=== PATIENT | female | born 1945 | race Caucasian/White ===

== ENCOUNTER 2021-05-08 08:56 | Inpatient (IN) ==
[2021-05-08] MEDS ORDERED: Levalbuterol 1 PUFF INHALER IH STA (09:38)
[2021-05-08 09:53] LABS: VBG HCO3 29 mEq/L (21-27); VBG PCO2 58 mmHg (41-51); VBG PH 7.31 pH Units (7.32-7.42); VBG PO2 51 mmHg (25-50)
[2021-05-08 09:59] LABS: INR 1.2; Prothrombin Time 13.2 Seconds (9.4-12.1)
[2021-05-08 10:02] LABS: Activated Partial Thrombo Time 34.1 Seconds (26.0-36.0)
[2021-05-08 10:23] LABS: Alanine Aminotransferase 34 Units/L (7-52); Albumin 4.3 g/dL (3.5-5.7); Albumin/Globulin Ratio 1.6 (1.1-2.2); Alkaline Phosphatase 64 Units/L (34-104); Aspartate Amino Transferase 30 Units/L (13-39); BUN/Creatinine Ratio 24 (6-26); Bilirubin,Direct 0.1 mg/dL (0.0-0.2); Bilirubin,Indirect 0.8 mg/dL (0.0-1.0); Bilirubin,Total 0.9 mg/dL (0.3-1.0); Blood Urea Nitrogen 16 mg/dL (8-23); Calcium 9.5 mg/dL (8.6-10.3); Carbon Dioxide 26 mEq/L (23-29); Chloride 92 mEq/L (98-107); Globulin 2.7 g/dL (2.4-3.5); Glucose 154 mg/dL (70-105); Osmolality,Calculated 270 (280-300); Potassium 4.5 mEq/L (3.5-5.1); Sodium 128 mEq/L (136-145); Troponin I 0.03 ng/mL (< 0.04); eGFR For African Americans > 60 (> 60); eGFR For Non-African Americans > 60 (> 60)
[2021-05-08] MEDS ORDERED: Furosemide 40 MG/4 ML VIAL IVP ONE (10:58)
[2021-05-08 11:02] LABS: Influenza A PCR Negative (Negative); Influenza B PCR Negative (Negative); Resp. Syncytial Virus PCR Negative (Negative)
[2021-05-08 11:03] LABS: SARS-CoV-2 by PCR (In House) Negative (Negative)
[2021-05-08 11:20] LABS: Basophils % 0.2 %; Eosinophils # 0.1 K/mcL (0.0-0.6); Eosinophils % 0.8 %; Hematocrit 45.1 % (35.3-44.9); Hemoglobin 14.3 g/dL (11.5-15.4); Immature Granulocytes % 0.3 % (0-4); Lymphocytes # 1.7 K/mcL (0.6-4.6); Lymphocytes % 11.4 %; Mean Corpuscular HGB Conc 31.7 g/dL (31.6-35.5); Mean Corpuscular Hemoglobin 28.1 pg (28.0-33.3); Mean Corpuscular Volume 88.8 fL (83.0-100.0); Mean Platelet Volume 10.6 fL (9.4-12.4); Monocytes # 0.8 K/mcL (0.0-1.3); Monocytes % 5.3 %; Neutrophils # 12.2 K/mcL (1.6-8.9); Platelet Count 199 K/mcL (140-400); Red Blood Count 5.08 M/mcL (3.82-4.97); Red Cell Distribution Width 13.7 % (11.5-14.5); White Blood Count 14.9 K/mcL (4.3-11.1)
[2021-05-08] MEDS ORDERED: Ondansetron 4 MG/2 ML VIAL IVP ONE (11:47)
[2021-05-08 12:01] LABS: Bilirubin,Urine Negative (Negative); Blood,Urine Negative (Negative); Clarity,Urine Clear (Clear); Color,Urine Light-Yellow (Yellow); Glucose,Urine (UA) >=1000 mg/dL (Normal); Ketones,Urine 20 mg/dL (Negative); Leukocyte Esterase,Urine Negative (Negative); Nitrite,Urine Negative (Negative); PH,Urine 5.5 pH Units (5.0-8.0); Protein,Urine Trace mg/dL (Neg-Trace); RBC,Urine 0-3 per hpf (0-3); Specific Gravity,Urine 1.027 (1.010-1.025); Squamous Epithelial Cell,Urine Few per hpf (None-Few); Urobilinogen,Urine Normal (Normal); WBC,Urine 0-3 per hpf (0-3)
[2021-05-08 12:15] LABS: Magnesium 1.7 mg/dL (1.6-2.6)
[2021-05-08] MEDS ORDERED: *HR* Metoprolol 5 MG/5 ML VIAL IVP ONE ×2 (13:20→16:04)
[2021-05-08] MEDS ORDERED: Naloxone 0.4 MG/ML INJ IVP PRN (14:19)
[2021-05-08] MEDS ORDERED: Ondansetron ODT 4 MG TAB.RAPDIS SL PRN (14:19)
[2021-05-08] MEDS ORDERED: Mag Hydrox/Al Hydrox/Simeth 30 ML UDC PO PRN (14:19)
[2021-05-08] MEDS ORDERED: Acetaminophen 325 MG TABLET PO PRN (14:19)
[2021-05-08] MEDS ORDERED: Melatonin 3 MG TABLET PO PRN (14:19)
[2021-05-08] MEDS ORDERED: Perflutren Lipid Microsphere 1.3 ML in 0.9 % Sodium Chloride 8.7 ML IVP PRN (14:21)
[2021-05-08] MEDS ORDERED: *HR* Dextrose 50 % in Water (Syg) 50 ML SYRINGE IVP PRN (14:22)
[2021-05-08] MEDS ORDERED: Dextrose Gel 15 GM/37.5 ML TUBE PO PRN ×2 (14:22)
[2021-05-08] MEDS ORDERED: D5% in Water 1,000 ML IVC PRN (14:22)
[2021-05-08] MEDS: Insulin LISPRO 300 UNITS/3 ML VIAL SUBQ SCH ×2 (15:31→20:13)
[2021-05-08] MEDS: Furosemide 40 MG/4 ML VIAL IVP SCH (16:26)
[2021-05-08] MEDS ORDERED: Levalbuterol Neb 1.25 MG/3 ML IH PRN (16:37)
[2021-05-08] MEDS: *HR* Heparin 5,000 UNIT/ML VIAL SQ SCH (17:58)
[2021-05-08] MEDS: Budesonide/Formoterol 160/4.5 1 PUFF INH IH SCH (19:30)
[2021-05-08] MEDS: *HR* Metoprolol 5 MG/5 ML VIAL IVP PRN (21:57)
[2021-05-09] MEDS: *HR* Metoprolol 5 MG/5 ML VIAL IVP PRN (04:02)
[2021-05-09] MEDS: *HR* Heparin 5,000 UNIT/ML VIAL SQ SCH ×2 (04:16→17:10)
[2021-05-09 05:32] LABS: Basophils % 0.2 %; Eosinophils # 0.1 K/mcL (0.0-0.6); Eosinophils % 0.7 %; Hematocrit 46.2 % (35.3-44.9); Hemoglobin 14.5 g/dL (11.5-15.4); Immature Granulocytes % 0.4 % (0-4); Lymphocytes # 1.9 K/mcL (0.6-4.6); Lymphocytes % 11.7 %; Mean Corpuscular HGB Conc 31.4 g/dL (31.6-35.5); Mean Corpuscular Hemoglobin 27.7 pg (28.0-33.3); Mean Corpuscular Volume 88.3 fL (83.0-100.0); Mean Platelet Volume 10.4 fL (9.4-12.4); Monocytes # 0.9 K/mcL (0.0-1.3); Monocytes % 5.8 %; Neutrophils # 13.1 K/mcL (1.6-8.9); Platelet Count 251 K/mcL (140-400); Red Blood Count 5.23 M/mcL (3.82-4.97); Red Cell Distribution Width 14.1 % (11.5-14.5); Segmented Neutrophils % 81.2 %; White Blood Count 16.1 K/mcL (4.3-11.1)
[2021-05-09 07:32] LABS: BUN/Creatinine Ratio 26 (6-26); Blood Urea Nitrogen 21 mg/dL (8-23); Calcium 8.9 mg/dL (8.6-10.3); Carbon Dioxide 19 mEq/L (23-29); Chloride 90 mEq/L (98-107); Glucose 159 mg/dL (70-105); Osmolality,Calculated 274 (280-300); Potassium 4.7 mEq/L (3.5-5.1); Sodium 129 mEq/L (136-145); eGFR For African Americans > 60 (> 60); eGFR For Non-African Americans > 60 (> 60)
[2021-05-09] MEDS: Insulin LISPRO 300 UNITS/3 ML VIAL SUBQ SCH ×4 (07:45→20:11)
[2021-05-09] MEDS: amLODIPine 5 MG TABLET PO SCH (07:48)
[2021-05-09] MEDS: Famotidine 20 MG TABLET PO SCH (07:48)
[2021-05-09] MEDS: ALPRAZolam 0.25 MG TABLET PO SCH (07:48)
[2021-05-09] MEDS: Furosemide 40 MG/4 ML VIAL IVP SCH ×2 (07:48→17:10)
[2021-05-09] MEDS: Budesonide/Formoterol 160/4.5 1 PUFF INH IH SCH ×2 (08:28→19:56)
[2021-05-09] MEDS ORDERED: Furosemide 40 MG/4 ML VIAL IVP SCH (09:00)
[2021-05-10 02:03] LABS: Basophils % 0.3 %; Eosinophils # 0.1 K/mcL (0.0-0.6); Hematocrit 43.1 % (35.3-44.9); Hemoglobin 13.7 g/dL (11.5-15.4); Immature Granulocytes % 0.3 % (0-4); Lymphocytes # 1.7 K/mcL (0.6-4.6); Mean Corpuscular HGB Conc 31.8 g/dL (31.6-35.5); Mean Corpuscular Hemoglobin 28.3 pg (28.0-33.3); Mean Platelet Volume 10.6 fL (9.4-12.4); Monocytes # 0.8 K/mcL (0.0-1.3); Monocytes % 6.7 %; Neutrophils # 8.9 K/mcL (1.6-8.9); Platelet Count 208 K/mcL (140-400); Red Blood Count 4.84 M/mcL (3.82-4.97); Red Cell Distribution Width 13.6 % (11.5-14.5); Segmented Neutrophils % 76.7 %; White Blood Count 11.6 K/mcL (4.3-11.1)
[2021-05-10 02:25] LABS: BUN/Creatinine Ratio 34 (6-26); Blood Urea Nitrogen 27 mg/dL (8-23); Calcium 8.6 mg/dL (8.6-10.3); Carbon Dioxide 34 mEq/L (23-29); Chloride 91 mEq/L (98-107); Glucose 150 mg/dL (70-105); Magnesium 1.6 mg/dL (1.6-2.6); Osmolality,Calculated 288 (280-300); Phosphorous 4.5 mg/dL (2.7-4.5); Potassium 3.7 mEq/L (3.5-5.1); Sodium 135 mEq/L (136-145); eGFR For African Americans > 60 (> 60); eGFR For Non-African Americans > 60 (> 60)
[2021-05-10] MEDS: Furosemide 40 MG/4 ML VIAL IVP SCH ×2 (07:57→17:02)
[2021-05-10] MEDS: Famotidine 20 MG TABLET PO SCH (07:57)
[2021-05-10] MEDS: ALPRAZolam 0.25 MG TABLET PO SCH (07:57)
[2021-05-10] MEDS: *HR* Heparin 5,000 UNIT/ML VIAL SQ SCH ×2 (07:57→17:03)
[2021-05-10] MEDS: Insulin LISPRO 300 UNITS/3 ML VIAL SUBQ SCH ×4 (07:58→21:19)
[2021-05-10] MEDS: amLODIPine 5 MG TABLET PO SCH (07:59)
[2021-05-10] MEDS: Budesonide/Formoterol 160/4.5 1 PUFF INH IH SCH ×2 (08:48→19:25)
[2021-05-11 03:34] LABS: Basophils % 0.3 %; Eosinophils # 0.2 K/mcL (0.0-0.6); Eosinophils % 1.7 %; Hematocrit 44.1 % (35.3-44.9); Hemoglobin 13.7 g/dL (11.5-15.4); Immature Granulocytes % 0.3 % (0-4); Lymphocytes % 17.6 %; Mean Corpuscular HGB Conc 31.1 g/dL (31.6-35.5); Mean Corpuscular Hemoglobin 27.6 pg (28.0-33.3); Mean Corpuscular Volume 88.9 fL (83.0-100.0); Mean Platelet Volume 10.4 fL (9.4-12.4); Monocytes # 0.8 K/mcL (0.0-1.3); Neutrophils # 8.4 K/mcL (1.6-8.9); Platelet Count 202 K/mcL (140-400); Red Blood Count 4.96 M/mcL (3.82-4.97); Red Cell Distribution Width 13.6 % (11.5-14.5); Segmented Neutrophils % 73.1 %; White Blood Count 11.4 K/mcL (4.3-11.1)
[2021-05-11 04:00] LABS: BUN/Creatinine Ratio 32 (6-26); Blood Urea Nitrogen 25 mg/dL (8-23); Carbon Dioxide 40 mEq/L (23-29); Chloride 87 mEq/L (98-107); Glucose 156 mg/dL (70-105); Magnesium 1.5 mg/dL (1.6-2.6); Osmolality,Calculated 288 (280-300); Phosphorous 3.4 mg/dL (2.7-4.5); Potassium 3.6 mEq/L (3.5-5.1); Sodium 135 mEq/L (136-145); eGFR For African Americans > 60 (> 60); eGFR For Non-African Americans > 60 (> 60)
[2021-05-11] MEDS: *HR* Heparin 5,000 UNIT/ML VIAL SQ SCH ×2 (04:53→17:21)
[2021-05-11] MEDS: Budesonide/Formoterol 160/4.5 1 PUFF INH IH SCH ×2 (07:15→20:11)
[2021-05-11] MEDS: Insulin LISPRO 300 UNITS/3 ML VIAL SUBQ SCH ×4 (07:28→20:30)
[2021-05-11] MEDS: ALPRAZolam 0.25 MG TABLET PO SCH (09:08)
[2021-05-11] MEDS: amLODIPine 5 MG TABLET PO SCH (09:08)
[2021-05-11] MEDS: Famotidine 20 MG TABLET PO SCH (09:08)
[2021-05-11] MEDS: Furosemide 40 MG/4 ML VIAL IVP SCH ×2 (09:08→17:21)
[2021-05-11] MEDS ORDERED: *HR* FentaNYL (PF) 100 MCG/2 ML VIAL IVP PRN (10:25)
[2021-05-11] MEDS ORDERED: 0.9 % Sodium Chloride 500 ML IVC ONE (10:25)
[2021-05-11] MEDS ORDERED: Lidocaine Viscous Oral Soln 15 ML SOLUTION MM PRN (10:25)
[2021-05-11] MEDS ORDERED: *HR* Midazolam HCl 5 MG/5 ML VIAL IVP PRN (10:25)
[2021-05-11] MEDS: *HR* Metoprolol 5 MG/5 ML VIAL IVP PRN (15:24)
[2021-05-11] MEDS ORDERED: Isovue-370 500 ML BOTTLE IVP ONE (16:19)
[2021-05-11] MEDS: predniSONE 20 MG TABLET PO SCH (17:21)
[2021-05-11] MEDS: Ipratropium Neb 0.5 MG NEBULIZER IH SCH ×2 (18:20→20:11)
[2021-05-11] MEDS: Levalbuterol Neb 1.25 MG/3 ML IH SCH ×2 (18:20→20:11)
[2021-05-12 01:10] LABS: Basophils % 0.2 %; Eosinophils % 0.1 %; Hematocrit 44.3 % (35.3-44.9); Hemoglobin 14.5 g/dL (11.5-15.4); Immature Granulocytes % 0.3 % (0-4); Lymphocytes # 0.6 K/mcL (0.6-4.6); Lymphocytes % 6.5 %; Mean Corpuscular HGB Conc 32.7 g/dL (31.6-35.5); Mean Corpuscular Hemoglobin 28.5 pg (28.0-33.3); Mean Platelet Volume 10.6 fL (9.4-12.4); Monocytes # 0.2 K/mcL (0.0-1.3); Monocytes % 1.7 %; Neutrophils # 8.7 K/mcL (1.6-8.9); Platelet Count 206 K/mcL (140-400); Red Blood Count 5.09 M/mcL (3.82-4.97); Red Cell Distribution Width 13.4 % (11.5-14.5); Segmented Neutrophils % 91.2 %; White Blood Count 9.6 K/mcL (4.3-11.1)
[2021-05-12 01:34] LABS: BUN/Creatinine Ratio 26 (6-26); Blood Urea Nitrogen 21 mg/dL (8-23); Carbon Dioxide 40 mEq/L (23-29); Chloride 85 mEq/L (98-107); Glucose 209 mg/dL (70-105); Magnesium 1.7 mg/dL (1.6-2.6); Osmolality,Calculated 283 (280-300); Phosphorous 3.4 mg/dL (2.7-4.5); Potassium 3.6 mEq/L (3.5-5.1); Sodium 132 mEq/L (136-145); eGFR For African Americans > 60 (> 60); eGFR For Non-African Americans > 60 (> 60)
[2021-05-12 01:58] LABS: ABG Base Excess 11 mEq/L (-2 to 3); ABG HCO3 37 mEq/L (21-27); ABG Oxygen Saturation 91 % (95-98); ABG PCO2 52 mmHg (35-45); ABG PH 7.46 pH Units (7.32-7.45); ABG PO2 60 mmHg (85-104); ABG TCO2 39 mEq/L (20-26)
[2021-05-12] MEDS: Ipratropium Neb 0.5 MG NEBULIZER IH SCH ×2 (04:15→07:17)
[2021-05-12] MEDS: Levalbuterol Neb 1.25 MG/3 ML IH SCH ×2 (04:16→07:17)
[2021-05-12] MEDS: *HR* Heparin 5,000 UNIT/ML VIAL SQ SCH (05:23)
[2021-05-12] MEDS: Budesonide/Formoterol 160/4.5 1 PUFF INH IH SCH (07:17)
[2021-05-12] MEDS: Insulin LISPRO 300 UNITS/3 ML VIAL SUBQ SCH ×2 (08:02→11:59)
[2021-05-12] MEDS: Furosemide 40 MG/4 ML VIAL IVP SCH (08:39)
[2021-05-12] MEDS: predniSONE 20 MG TABLET PO SCH (08:40)
[2021-05-12] MEDS: ALPRAZolam 0.25 MG TABLET PO SCH (08:41)
[2021-05-12] MEDS: Famotidine 20 MG TABLET PO SCH (08:41)
[2021-05-12] MEDS: amLODIPine 5 MG TABLET PO SCH (08:41)
[2021-05-12 10:53] VITALS: BP 140/83; PULSE 110; TEMP 98.2; O2SAT 92
== END 2021-05-12 13:58 | disposition home health service (06) | DRG 291 ==
LOC: EMEROOARM 08:56 → 2ANU 08:56
PROVIDERS: ADMIT Family Medicine; ATTEND Family Medicine